=== PATIENT | female | born 1965 | race Caucasian/White ===

== ENCOUNTER → 2023-08-25 07:35 | Outpatient (REF) | payer OTHER, SELFPAY | LOC: WDC 07:35 | PROVIDERS: ATTENDING PHYSICIAN Obstetrics & Gynecology | DX: Z12.31 Encounter for screening mammogram for malignant neoplasm of breast (principal) | CPT/HCPCS: 77063; 77067 ==

== ENCOUNTER → 2024-02-17 13:37 | Outpatient (REF) | payer OTHER, SELFPAY | LOC: HWRCS 13:37 | PROVIDERS: ATTENDING PHYSICIAN Internal Medicine Interventional Cardiology; FAMILY PHYSICIAN Physician Assistant Medical | DX: I08.0 Rheumatic disorders of both mitral and aortic valves (principal) | CPT/HCPCS: 93306 ==

== ENCOUNTER → 2024-08-26 07:24 | Outpatient (REF) | payer OTHER, SELFPAY | LOC: WDC 07:24 | PROVIDERS: ATTENDING PHYSICIAN Obstetrics & Gynecology; FAMILY PHYSICIAN Physician Assistant Medical | DX: Z12.31 Encounter for screening mammogram for malignant neoplasm of breast (principal) | CPT/HCPCS: 77063; 77067 ==